=== PATIENT | female | born 1965 | race Caucasian/White ===

== ENCOUNTER 2016-12-09 11:04 | Emergency (ER) | payer OTHER ==
[~2016-12-09] VITALS: Ht 160 cm; Wt 102.5 kg
[2016-12-09 12:21] LABS: BASOPHIL % 0.6 % (0-2); PLATELET COUNT 400 x10^3mcL (130-400); RED CELL DISTRIBUTION WIDTH 13.4 % (11.5-14.5)
[2016-12-09 12:32] LABS: CALCIUM 9.2 mg/dL (8.5-10.1); CHLORIDE SERUM 104 mmol/L (98-107); CREATININE SERUM 0.8 mg/dL (0.6-1.0); GFR1 > 60 mL/min; GLUCOSE SERUM 102 mg/dL (74-106); POTASSIUM SERUM 3.7 mmol/L (3.5-5.1); SODIUM SERUM 142 mmol/L (136-145)
[2016-12-09 12:45] LABS: ALBUMIN 3.5 g/dL (3.4-5.0); ALKALINE PHOSPHATASE 100 U/L (46-116); ALT/SGPT 43 U/L (14-59); AST/SGOT 42 U/L (15-37); BILIRUBIN TOTAL 0.46 mg/dL (0.20-1.00); T4(THYROXINE) 10.1 ug/dL (4.7-13.3); TOTAL PROTEIN, SERUM 7.9 g/dL (6.4-8.2)
[2016-12-09 13:15] LABS: microscopic required? YES; urine erythrocyte NEGATIVE (NEGATIVE)
[2016-12-09 14:55] VITALS: BP 127/99
== END 2016-12-09 14:55 | disposition home or self-care (01) ==
LOC: ED 11:04
PROVIDERS: Emergency Medicine
DX: J20.9 Acute bronchitis, unspecified (principal); I10 Essential (primary) hypertension
CPT/HCPCS: 36600; 82962; 83880; J1956; J2930; J7030; J7613; J7644

== ENCOUNTER 2017-01-06 09:09 | Emergency (ER) | payer OTHER ==
[~2017-01-06] VITALS: Ht 160 cm; Wt 104.3 kg
[2017-01-06 11:54] LABS: UA SPECIFIC GRAVITY >=1.030 (1.005-1.035); microscopic required? YES; urine erythrocyte TRACE (NEGATIVE)
[2017-01-06 12:11] VITALS: BP 149/100
== END 2017-01-06 12:11 | disposition home or self-care (01) ==
LOC: ED 09:09
PROVIDERS: Emergency Medicine
DX: S29.012A Strain of muscle and tendon of back wall of thorax, initial encounter (principal); I10 Essential (primary) hypertension; E66.9 Obesity, unspecified; X58.XXXA Exposure to other specified factors, initial encounter; Y93.89 Activity, other specified; Y92.89 Other specified places as the place of occurrence of the external cause; Y99.8 Other external cause status
CPT/HCPCS: J1100; J1885

== ENCOUNTER 2017-11-30 22:10 | Emergency (ER) | payer OTHER ==
[~2017-11-30] VITALS: Ht 160 cm; Wt 105.0 kg
[2017-11-30 22:32] VITALS: Ht 160 cm; Wt 105.0 kg
[2017-11-30 23:49] VITALS: BP 155/73
== END 2017-11-30 22:32 | disposition home or self-care (01) ==
LOC: ED 22:10
DX: B34.9 Viral infection, unspecified (principal); I10 Essential (primary) hypertension; G89.29 Other chronic pain

== ENCOUNTER 2019-03-06 20:41 | Emergency (ER) | payer OTHER ==
[~2019-03-06] VITALS: Ht 162.6 cm; Wt 97.1 kg
[2019-03-06 20:44] VITALS: Ht 162.6 cm; Wt 97.1 kg
[2019-03-06 21:11] VITALS: BP 145/87
== END 2019-03-06 21:11 | disposition home or self-care (01) ==
LOC: ED 20:41
DX: S60.562A Insect bite (nonvenomous) of left hand, initial encounter (principal); I10 Essential (primary) hypertension; G89.29 Other chronic pain; Z90.710 Acquired absence of both cervix and uterus; Z85.3 Personal history of malignant neoplasm of breast; Z98.890 Other specified postprocedural states; W57.XXXA Bitten or stung by nonvenomous insect and other nonvenomous arthropods, initial encounter; Y93.89 Activity, other specified; Y92.89 Other specified places as the place of occurrence of the external cause; Y99.8 Other external cause status
CPT/HCPCS: J7512

== ENCOUNTER 2019-11-16 00:20 | Emergency (ER) | payer OTHER ==
[~2019-11-16] VITALS: Ht 160 cm; Wt 102.5 kg
[2019-11-16 00:34] VITALS: Ht 160 cm; Wt 102.5 kg
[2019-11-16 03:31] VITALS: BP 164/85
== END 2019-11-16 03:31 | disposition home or self-care (01) ==
LOC: ED 00:20
DX: G89.29 Other chronic pain (principal); M25.562 Pain in left knee; I10 Essential (primary) hypertension; Z90.710 Acquired absence of both cervix and uterus; Z98.890 Other specified postprocedural states
CPT/HCPCS: J1885

== ENCOUNTER 2020-09-14 19:20 | Emergency (ER) | payer OTHER, SELFPAY ==
[~2020-09-14] VITALS: Ht 160 cm; Wt 99.8 kg
[2020-09-14 19:21] VITALS: Ht 160 cm; Wt 99.8 kg
[2020-09-14 20:02] VITALS: BP 139/84
== END 2020-09-14 19:55 | disposition home or self-care (01) ==
LOC: ED 19:20
DX: U07.1 COVID-19 (principal); I10 Essential (primary) hypertension; Z90.710 Acquired absence of both cervix and uterus
CPT/HCPCS: Q0162; U0003